=== PATIENT | female | born 1955 | race Caucasian/White ===

== ENCOUNTER 2017-12-13 13:44 | Inpatient (IN) | payer OTHER ==
[~2017-12-13] VITALS: Ht 152.4 cm; Wt 97.7 kg
[~2017-12-13 13:44] MED LIST: ATORVASTATIN CA10 MG PO; CIPRO500 MG PO; CYCLOBENZAPRINE10 MG PO; FLAGYL250 MG PO; HYOSCYAMINE0.125 MG PO; LEVOTHYROXINE50 MCG PO; NORCO 10-325 T1 EACH PO; PEPCID20 MG PO; PROZAC10 MG PO; RAMIPRIL10 MG PO; ZOFRAN ODT4 MG SL; levothyroxine PO
[2017-12-13 14:25] LABS: BASOPHILS # (AUTO) 0.1 (0.0-0.1); BASOPHILS % 0.3 % (0.0-1.0); EOSINOPHILS # (AUTO) 0.4 (0.0-0.4); EOSINOPHILS % 2.1 % (0.0-6.0); HEMATOCRIT 35.5 % (34.2-44.1); LYMPHOCYTES % 15.9 % (18.0-39.1); MEAN CORPUSCULAR HEMOGLOBIN 32.4 pg (28-32); MEAN CORPUSCULAR HGB CONC 33.8 g/dL (31-35); MEAN CORPUSCULAR VOLUME 95.9 fL (81-99); MONOCYTES # (AUTO) 1.3 (0.2-0.8); MONOCYTES % 7.1 % (4.4-11.3); NEUTROPHILS # (AUTO) 13.9 (2.1-6.9); NEUTROPHILS % 73.6 % (38.7-80.0); PLATELET COUNT 271 x10e3/uL (140-360); RED CELL DISTRIBUTION WIDTH 12.6 % (11.7-14.4)
[2017-12-13 14:39] LABS: ALANINE AMINOTRANSFERASE 10 IU/L (0-55); ALBUMIN 2.8 g/dL (3.5-5.0); ALBUMIN/GLOBULIN RATIO 0.7 (0.8-2.0); ALKALINE PHOSPHATASE 55 IU/L (40-150); ANION GAP 14.4 mmol/L (8-16); BLOOD UREA NITROGEN 10 mg/dL (7-26); BUN/CREATININE RATIO 13 (6-25); CARBON DIOXIDE 29 mmol/L (22-29); CHLORIDE 102 mmol/L (98-107); CREATININE, SERUM 0.76 mg/dL (0.57-1.11); EST GLOMERULAR FILTRATION RATE > 60 ML/MIN (60-); GLUCOSE 101 mg/dL (74-118); POTASSIUM 3.4 mmol/L (3.5-5.1); SODIUM 142 mmol/L (136-145)
[2017-12-13] MEDS ORDERED: ONDANSETRON HCL INJ 2 MG/ML VIAL IV STA ×2 (14:45→17:16)
[2017-12-13] MEDS ORDERED: SODIUM CHLORIDE 0.9% 1000ML 1,000 ML IV STA (14:45)
[2017-12-13] MEDS ORDERED: MORPHINE SULFATE INJ 4 MG/ML INJ IV ONE (14:45)
[2017-12-13 15:17] LABS: AMYLASE 22 U/L (25-125); LIPASE 14 U/L (8-78)
[2017-12-13 15:36] LABS: CLARITY,URINE SL CLOUDY (CLEAR); COLOR,URINE YELLOW (YELLOW); KETONES,URINE NEGATIVE (NEGATIVE); LEUKOCYTE ESTERASE ,URINE TRACE (NEGATIVE); NITRITE,URINE NEGATIVE (NEGATIVE); PROTEIN,URINE DIPSTICK NEGATIVE (NEGATIVE); URINE UROBILINOGEN 0.2 mg/dL (0.2 - 1)
[2017-12-13 15:37] LABS: BILIRUBIN,URINE NEGATIVE (NEGATIVE)
[2017-12-13 15:44] LABS: EPITHELIAL CELLS,URINE FEW /LPF; RBC,URINE 0-5 /HPF (0-5)
[2017-12-13] MEDS ORDERED: DIPHENHYDRAMINE HCL INJ 50 MG/ML VIAL IV STA (16:33)
[2017-12-13] MEDS ORDERED: MORPHINE SULFATE INJ 4 MG/ML INJ IV STA (17:16)
[2017-12-13] MEDS ORDERED: HYDROMORPHONE 1MG/1ML INJ IV ONE (19:14)
--- NOTE | 2017-12-13 19:30 | Diagnostic Imaging Report ---
CT Abdomen And Pelvis with Intravenous Contrast INDICATION: Lower abdominal pain TECHNIQUE: Thin collimation axial images obtained from the diaphragm to the level of the pubic symphysis following the uneventful administration of 100 cc of low osmolar, nonionic intravenous contrast. RADIATION DOSE: Total DLP: 728.8 mGy*cm Estimated effective dose: (DLP x 0.015 x size factor) mSv CTDIvol has been reviewed. It is below the limits set by the Radiation Protocol Committee (RPC). COMPARISON: None. ABDOMEN FINDINGS: Lung Bases: Minimal posterior atelectasis. Visualized portion of the mediastinum is normal. Liver: Decreased attenuation. The right lobe measures 17 cm in length. No mass.. Gallbladder: Present and appears normal. No biliary ductal dilatation. Pancreas: Normal attenuation without mass or ductal dilatation. Spleen: Normal in size. No evidence of mass.. Adrenal Glands: No evidence for mass. Kidneys: Right: Normal enhancement. No soft tissue mass. No hydronephrosis. Left: Normal enhancement. No soft tissue mass. No hydronephrosis. Lymph Nodes: No enlarged abdominal or periaortic lymph nodes. Aorta: Normal in diameter. Celiac artery and SMA are patent. PELVIS FINDINGS: Bowel: Stomach: Contains enteric contrast and is normal. Small Bowel: Contains enteric contrast. No dilatation or mural thickening. Large Bowel: Mural thickening and hyperemia with engorgement of the adjacent vasculature of the transverse colon. No associated diverticula. There are a few diverticula in the descending colon and particularly the sigmoid colon without associated inflammation. The ascending colon is not dilated. No significant stool burden in the large bowel. Appendix: Not visualized and may be absent. Bladder: Normal. The uterus is absent. No adnexal mass. There is a trace amount of ascites. No loculated fluid collection. Bones: Mild to moderate degenerative changes of the lower thoracic spine. Soft tissues: Bilateral calcified subcutaneous cutaneous granulomata in the posterior pelvis. IMPRESSION: 1. Long segment of mural thickening and adjacent inflammation of the transverse colon suggestive of colitis. No bowel obstruction. 2. Diverticulosis coli. 3. Hepatic steatosis and mild hepatomegaly. Signed by: Dr. Nas Cisneros MD on 12/13/2017 7:26 PM
[2017-12-13] MEDS ORDERED: PANTOPRAZOLE 40 MG 10ML VIAL IV ONE (21:00)
[2017-12-13] MEDS: SODIUM CHLORIDE 0.9% 1000ML 1,000 ML IV SCH (21:28)
[2017-12-13] MEDS: CEFTRIAXONE SOD 1 GM VIAL IV SCH (21:29)
[2017-12-13] MEDS: METRONIDAZOLE 500MG/NS 100ML IV SCH (21:34)
[2017-12-13 22:02] VITALS: BP 132/62
[2017-12-13 23:00] VITALS: BP 132/62
[2017-12-14] VITALS (7 sets, daily range): BP systolic 121–151; BP diastolic 60–72
[2017-12-14] MEDS: ONDANSETRON HCL INJ 2 MG/ML VIAL IV PRN ×2 (00:03→22:45)
[2017-12-14] MEDS: MORPHINE SULFATE 2 MG/ML SYR IV PRN ×2 (00:03→22:45)
[2017-12-14] MEDS ORDERED: BISACODYL 5 MG TAB EC PO ONE ×3 (00:30→01:00)
[2017-12-14] MEDS: METRONIDAZOLE 500MG/NS 100ML IV SCH ×4 (03:00→22:31)
[2017-12-14] MEDS ORDERED: CITRATE OF MAGNESIA 300ML BOTTLE PO ONE ×2 (05:00→07:00)
[2017-12-14 06:27] LABS: BASOPHILS # (AUTO) 0.1 (0.0-0.1); BASOPHILS % 0.5 % (0.0-1.0); EOSINOPHILS # (AUTO) 0.5 (0.0-0.4); HEMATOCRIT 32.9 % (34.2-44.1); HEMOGLOBIN 10.6 g/dL (12.0-16.0); LYMPHOCYTES # (AUTO) 2.5 (1.0-3.2); LYMPHOCYTES % 16.7 % (18.0-39.1); MEAN CORPUSCULAR HGB CONC 32.2 g/dL (31-35); MEAN CORPUSCULAR VOLUME 99.4 fL (81-99); MONOCYTES # (AUTO) 1.4 (0.2-0.8); MONOCYTES % 9.2 % (4.4-11.3); NEUTROPHILS # (AUTO) 10.6 (2.1-6.9); NEUTROPHILS % 69.5 % (38.7-80.0); PLATELET COUNT 243 x10e3/uL (140-360); RED BLOOD COUNT 3.31 x10e6/uL (3.6-5.1); RED CELL DISTRIBUTION WIDTH 12.7 % (11.7-14.4)
[2017-12-14 06:49] LABS: ALANINE AMINOTRANSFERASE 7 IU/L (0-55); ALBUMIN 2.4 g/dL (3.5-5.0); ALBUMIN/GLOBULIN RATIO 0.7 (0.8-2.0); ALKALINE PHOSPHATASE 51 IU/L (40-150); ANION GAP 13.3 mmol/L (8-16); BLOOD UREA NITROGEN 8 mg/dL (7-26); BUN/CREATININE RATIO 10 (6-25); CALCIUM 8.2 mg/dL (8.4-10.2); CARBON DIOXIDE 27 mmol/L (22-29); CHLORIDE 103 mmol/L (98-107); CREATININE, SERUM 0.77 mg/dL (0.57-1.11); EST GLOMERULAR FILTRATION RATE > 60 ML/MIN (60-); GLUCOSE 89 mg/dL (74-118); POTASSIUM 3.3 mmol/L (3.5-5.1); SODIUM 140 mmol/L (136-145)
[2017-12-14] MEDS: SODIUM CHLORIDE 0.9% 1000ML 1,000 ML IV SCH ×2 (08:15→16:34)
[2017-12-14] MEDS: CEFTRIAXONE SOD 1 GM VIAL IV SCH ×2 (08:15→22:31)
[2017-12-14] MEDS: PANTOPRAZOLE 40 MG 10ML VIAL IV SCH ×2 (08:15→18:36)
--- NOTE | 2017-12-14 10:18 | History and Physical ---
Ms. Luz is a [facility] 62-year-old woman who presented to the emergency room with a complaint of abdominal discomfort. HISTORY OF PRESENT ILLNESS: The patient had intermittent problems for the last 4 days. She reports that she had left total knee replacement less than 1 week ago at the [facility] but that her knee is doing well. PAST MEDICAL HISTORY: Significant for hospitalization at [facility] in December 2016 where she had abdominal discomfort and was felt to have sigmoid diverticulitis. She had some dehydration as well. She has previous diagnoses of hypertension, hyperlipidemia, and hypothyroidism. HOME MEDICATIONS: She reports taking levothyroxine, atorvastatin, and once a week Fosamax. SOCIAL HISTORY: She does not smoke or drink. PHYSICAL EXAMINATION GENERAL: At this time shows a pleasant woman who is awake, alert, and oriented. HEAD, EYES, EARS, NOSE, AND THROAT: Unremarkable. NECK: Thick. No jugular venous distention. No bruits. THORAX: Heart sounds S1 and S2 are equal. No murmurs. LUNGS: Clear. ABDOMEN: Protuberant. Healed lower midline incision. Mild diffuse tenderness. EXTREMITIES: Show the left knee bandage intact. No cyanosis, clubbing, or edema. EKG on the chart shows sinus rhythm, low voltages. Initial CBC shows hemoglobin 12.0, white count 18.8. CAT scan of the abdomen shows mural thickening in the transverse colon and hepatic steatosis. ASSESSMENT 1. Abdominal discomfort. 2. Possible colitis. 3. History of diverticulitis. 4. Recent total knee replacement. 5. Hypothyroidism. 6. History of hypertension. PLAN: Will give broad-spectrum antibiotics and IV fluids and ask for GI consultation. Further management based on clinical course. Job#: [id number] CF cc:DO NATALI ROSAS MD
--- NOTE | 2017-12-14 18:08 | Operative Report ---
DATE OF PROCEDURE: December 14, 2017 REFERRING PHYSICIANS: Dr. Drew Salamanca and Dr. Alexandr Pickett. PROCEDURE PERFORMED: Colonoscopy with biopsies. INDICATIONS FOR COLONOSCOPY: Acute diarrhea, abnormal CT scan of the abdomen. MEDICATION: Patient was done under MAC. Please see anesthesiologist's note. PROCEDURE: With patient in the left lateral decubitus position, flexible fiberoptic Olympus colonoscope was inserted into the rectum with ease and advanced all the way to the cecum. Some scattered ulcerations were noted in the ascending colon. The transverse colon was diffusely ulcerated. Multiple bulb biopsies were obtained. The mucosa overlying the descending, sigmoid and rectum revealed some mild to moderate patchy inflammatory changes and biopsies were obtained also. The scope was retroflexed into the distal rectum and small internal hemorrhoids were noted, none of which was actively bleeding. The scope was then straightened out and was subsequently withdrawn after securing an adequate stool specimen that was sent for the appropriate stool studies. Patient tolerated procedure well. IMPRESSION: 1. Ulcerative colitis primarily involving the ascending and transverse colon. 2. Diverticulosis. 3. Internal hemorrhoids, none actively bleeding. PLAN: Follow up histology. Follow up stool studies. Initiate full liquid diet. Job#: [id number] cc:DREW SALAMANCA MD cc:ALEXANDR PICKETT DO
[2017-12-14 18:14] LABS: WBC,FECAL (FECAL LACTOFERRIN) POSITIVE (NEGATIVE)
[2017-12-14] MEDS ORDERED: HYOSCYAMINE SULFATE 0.5 MG/ML AMP ONE (19:13)
[2017-12-14] MEDS ORDERED: LIDOCAINE HCL 2% LOCAL INJ 5 ML SDV VIAL INJ ONE (19:13)
[2017-12-14] MEDS ORDERED: CEFAZOLIN SOD 1 GM VIAL ONE (19:13)
[2017-12-14] MEDS ORDERED: PROPOFOL IV EMULSION 10 MG/ML 50 ML VIAL ONE (19:13)
[2017-12-15] VITALS (10 sets, daily range): BP systolic 111–157; BP diastolic 57–91
[2017-12-15] MEDS: SODIUM CHLORIDE 0.9% 1000ML 1,000 ML IV SCH ×3 (02:34→22:09)
[2017-12-15] MEDS: METRONIDAZOLE 500MG/NS 100ML IV SCH ×4 (03:18→20:22)
[2017-12-15] MEDS: CEFTRIAXONE SOD 1 GM VIAL IV SCH ×2 (08:24→20:00)
[2017-12-15] MEDS: PANTOPRAZOLE 40 MG 10ML VIAL IV SCH ×2 (08:24→16:18)
[2017-12-15 13:18] LABS: C DIFFICILE TOXIN A&B AMP PROB NEGATIVE (NEGATIVE)
[2017-12-15] MEDS ORDERED: POTASSIUM CHLORIDE 20 MEQ TAB CR PO ONE (15:00)
[2017-12-15] MEDS: MORPHINE SULFATE 2 MG/ML SYR IV PRN ×2 (16:18→21:30)
[2017-12-15] MEDS ORDERED: FENTANYL CITRATE/PF 100MCG/2 ML INJ ONE (19:11)
[2017-12-15] MEDS ORDERED: MIDAZOLAM HCL 2 MG/2 ML VIAL ONE (19:11)
[2017-12-15] MEDS: ONDANSETRON HCL INJ 2 MG/ML VIAL IV PRN (20:00)
[2017-12-16 04:03] VITALS: BP 126/59
[2017-12-16] MEDS: METRONIDAZOLE 500MG/NS 100ML IV SCH ×4 (04:33→20:40)
[2017-12-16 05:47] LABS: BASOPHILS # (AUTO) 0.1 (0.0-0.1); BASOPHILS % 1.2 % (0.0-1.0); EOSINOPHILS # (AUTO) 0.6 (0.0-0.4); EOSINOPHILS % 5.4 % (0.0-6.0); HEMATOCRIT 33.9 % (34.2-44.1); HEMOGLOBIN 11.1 g/dL (12.0-16.0); LYMPHOCYTES # (AUTO) 2.8 (1.0-3.2); LYMPHOCYTES % 26.5 % (18.0-39.1); MEAN CORPUSCULAR HEMOGLOBIN 32.5 pg (28-32); MEAN CORPUSCULAR HGB CONC 32.7 g/dL (31-35); MEAN CORPUSCULAR VOLUME 99.1 fL (81-99); MONOCYTES # (AUTO) 1.2 (0.2-0.8); MONOCYTES % 11.4 % (4.4-11.3); NEUTROPHILS # (AUTO) 5.2 (2.1-6.9); NEUTROPHILS % 49.7 % (38.7-80.0); PLATELET COUNT 285 x10e3/uL (140-360); RED BLOOD COUNT 3.42 x10e6/uL (3.6-5.1); RED CELL DISTRIBUTION WIDTH 12.8 % (11.7-14.4)
[2017-12-16 06:10] LABS: ANION GAP 11.8 mmol/L (8-16); BLOOD UREA NITROGEN < 5 mg/dL (7-26); CALCIUM 8.1 mg/dL (8.4-10.2); CARBON DIOXIDE 25 mmol/L (22-29); CHLORIDE 109 mmol/L (98-107); CREATININE, SERUM 0.73 mg/dL (0.57-1.11); EST GLOMERULAR FILTRATION RATE > 60 ML/MIN (60-); GLUCOSE 82 mg/dL (74-118); POTASSIUM 3.8 mmol/L (3.5-5.1); SODIUM 142 mmol/L (136-145)
[2017-12-16 06:12] LABS: BUN/CREATININE RATIO 7 (6-25)
[2017-12-16] MEDS ORDERED: TIZANIDINE HCL4 MG PO (06:17)
[2017-12-16] MEDS ORDERED: ASPIR 8181 MG (06:18)
[2017-12-16 07:00] VITALS: BP 130/66
[2017-12-16 07:24] VITALS: BP 130/66
[2017-12-16 07:54] LABS: ANISOCYTOSIS SLIGHT; EOSINOPHILS % (MANUAL) 5 % (0-7); LYMPHOCYTES % (MANUAL) 29 % (19-48); METAMYELOCYTES % (MANUAL) 3 % (0-0); MONOCYTES % (MANUAL) 12 % (3.4-9.0); MYELOCYTES % (MANUAL) 1 % (0-0); NEUTROPHILS % (MANUAL) 50 % (40-74); PLATELET ESTIMATE ADEQUATE; PLATELET MORPHOLOGY COMMENT NORMAL; RBC MORPHOLOGY COMMENT NORMAL
[2017-12-16] MEDS: SODIUM CHLORIDE 0.9% 1000ML 1,000 ML IV SCH ×2 (08:05→17:11)
[2017-12-16] MEDS: CEFTRIAXONE SOD 1 GM VIAL IV SCH ×2 (08:05→19:52)
[2017-12-16] MEDS: PANTOPRAZOLE 40 MG 10ML VIAL IV SCH ×2 (08:06→16:15)
[2017-12-16 11:35] VITALS: BP 135/62
[2017-12-16 15:58] VITALS: BP 147/65
[2017-12-16] MEDS: MORPHINE SULFATE 2 MG/ML SYR IV PRN ×2 (17:11→20:49)
[2017-12-16 20:00] VITALS: BP 117/53
[2017-12-17] VITALS: BP 98/53
[2017-12-17] MEDS: SODIUM CHLORIDE 0.9% 1000ML 1,000 ML IV SCH (01:56)
[2017-12-17] MEDS: METRONIDAZOLE 500MG/NS 100ML IV SCH ×2 (01:56→08:42)
[2017-12-17 04:00] VITALS: BP 126/63
[2017-12-17 05:24] LABS: BASOPHILS # (AUTO) 0.1 (0.0-0.1); BASOPHILS % 0.6 % (0.0-1.0); EOSINOPHILS # (AUTO) 0.3 (0.0-0.4); EOSINOPHILS % 3.3 % (0.0-6.0); HEMATOCRIT 32.7 % (34.2-44.1); HEMOGLOBIN 10.6 g/dL (12.0-16.0); LYMPHOCYTES # (AUTO) 2.5 (1.0-3.2); MEAN CORPUSCULAR HEMOGLOBIN 31.9 pg (28-32); MEAN CORPUSCULAR HGB CONC 32.4 g/dL (31-35); MEAN CORPUSCULAR VOLUME 98.5 fL (81-99); MONOCYTES # (AUTO) 1.3 (0.2-0.8); NEUTROPHILS % 49.8 % (38.7-80.0); PLATELET COUNT 288 x10e3/uL (140-360); RED BLOOD COUNT 3.32 x10e6/uL (3.6-5.1); RED CELL DISTRIBUTION WIDTH 12.7 % (11.7-14.4)
[2017-12-17 05:44] LABS: ANION GAP 10.9 mmol/L (8-16); BLOOD UREA NITROGEN < 5 mg/dL (7-26); CALCIUM 8.2 mg/dL (8.4-10.2); CARBON DIOXIDE 25 mmol/L (22-29); CHLORIDE 109 mmol/L (98-107); CREATININE, SERUM 0.78 mg/dL (0.57-1.11); EST GLOMERULAR FILTRATION RATE > 60 ML/MIN (60-); GLUCOSE 99 mg/dL (74-118); POTASSIUM 3.9 mmol/L (3.5-5.1); SODIUM 141 mmol/L (136-145)
[2017-12-17 05:57] LABS: BUN/CREATININE RATIO 6 (6-25)
[2017-12-17 06:15] LABS: EOSINOPHILS % (MANUAL) 5 % (0-7); LYMPHOCYTES % (MANUAL) 25 % (19-48); MONOCYTES % (MANUAL) 8 % (3.4-9.0); MYELOCYTES % (MANUAL) 1 % (0-0); NEUTROPHILS % (MANUAL) 53 % (40-74)
[2017-12-17 06:16] LABS: ANISOCYTOSIS SLIGHT; HYPOCHROMASIA SLIGHT; PLATELET ESTIMATE ADEQUATE; RBC MORPHOLOGY COMMENT NORMAL
[2017-12-17 06:17] LABS: PLATELET MORPHOLOGY COMMENT NORMAL; POIKILOCYTOSIS SLIGHT
[2017-12-17 08:00] VITALS: BP 153/70
[2017-12-17] MEDS: PANTOPRAZOLE 40 MG 10ML VIAL IV SCH (08:18)
[2017-12-17] MEDS: CEFTRIAXONE SOD 1 GM VIAL IV SCH (08:20)
[2017-12-17 09:53] VITALS: BP 153/70
[2017-12-17 12:00] VITALS: BP 148/67
--- NOTE | 2017-12-24 13:41 | Discharge Summary ---
HISTORY OF PRESENT ILLNESS: Ms. Luz is a [facility] 62-year-old who presented to the emergency room on the with the complaint of abdominal discomfort. HOSPITAL COURSE: CAT scan suggested possible colitis. She had had a recent left total knee replacement at [facility] the week before. She was seen in consultation by Dr. Titus Samson, who did colonoscopy for her, suggesting ulcerative colitis in the ascending and transverse colon with some diverticulosis. She was managed medically. By the , the patient was eager to be discharged to home and she was discharged with medical management and she will follow up with Dr. Titus Samson as an outpatient. DISCHARGE DIAGNOSES: 1. Abdominal pain. 2. Colitis. 3. Recent total knee replacement. 4. Hypothyroidism. 5. Hypertension. She will resume her home medications as well. DREW SALAMANCA MD Job#: [id number] [employer]
== END 2017-12-17 12:55 | disposition home or self-care (01) | DRG 386 ==
LOC: ER 13:44 → ERHOLD 20:45 → MED/SURG3 21:47
PROVIDERS: ADMIT Internal Medicine Cardiovascular Disease; ATTEND Internal Medicine Cardiovascular Disease
PROC: 0DBN8ZX Excision of Sigmoid Colon, Via Natural or Artificial Opening Endoscopic, Diagnostic (ICD-10-PCS; 2017-12-14)
PROC: 0DBP8ZX Excision of Rectum, Via Natural or Artificial Opening Endoscopic, Diagnostic (ICD-10-PCS; 2017-12-14)
PROC: 0DBM8ZX Excision of Descending Colon, Via Natural or Artificial Opening Endoscopic, Diagnostic (ICD-10-PCS; 2017-12-14)
PROC: 0DBK8ZX Excision of Ascending Colon, Via Natural or Artificial Opening Endoscopic, Diagnostic (ICD-10-PCS; principal; 2017-12-14 17:30)
DX: K51.918 Ulcerative colitis, unspecified with other complication (principal); K57.32 Diverticulitis of large intestine without perforation or abscess without bleeding; E03.9 Hypothyroidism, unspecified; I10 Essential (primary) hypertension; Z96.652 Presence of left artificial knee joint; E86.0 Dehydration; Z79.51 Long term (current) use of inhaled steroids; K76.0 Fatty (change of) liver, not elsewhere classified; E78.5 Hyperlipidemia, unspecified
CPT/HCPCS: 36415; 45380; 74177; 80048; 80053; 81001; 82150; 83605; 83630; 83690; 83993; 85025; 87040; 87045; 87177; 87328; 87493; 88305; 93005; 99284; J0690; J0696; J1170; J1200; J1980; J2001; J2250; J2270; J2405; J7030

== ENCOUNTER 2022-09-02 18:09 | Emergency (ER) | payer OTHER, MEDICARE ==
[~2022-09-02] VITALS: Ht 152.4 cm; Wt 97.5 kg
[~2022-09-02 18:09] MED LIST changes: +ASPIR 8181 MG; +TIZANIDINE HCL4 MG PO
[2022-09-02 19:30] VITALS: O2SAT 98
== END 2022-09-02 21:35 | disposition home or self-care (01) ==
LOC: ER 18:40
DX: S76.012A Strain of muscle, fascia and tendon of left hip, initial encounter (principal); S39.011A Strain of muscle, fascia and tendon of abdomen, initial encounter; Y93.E9 Activity, other interior property and clothing maintenance; Y92.89 Other specified places as the place of occurrence of the external cause; I10 Essential (primary) hypertension; E78.5 Hyperlipidemia, unspecified; E03.9 Hypothyroidism, unspecified; Z87.19 Personal history of other diseases of the digestive system
CPT/HCPCS: 99282

== ENCOUNTER 2022-09-20 09:53 | Inpatient (IN) | payer OTHER, MEDICARE ==
[~2022-09-20] VITALS: Ht 152.4 cm; Wt 97.5 kg
[2022-09-20] MEDS ORDERED: SODIUM CHLORIDE 0.9% 1000ML 1,000 ML IV STA (10:14)
[2022-09-20] MEDS ORDERED: ONDANSETRON HCL INJ 2MG/ML 2ML 2 MG/ML VIAL IV STA (10:14)
[2022-09-20 10:26] LABS: BASOPHILS % 0.2 % (0.0-1.0); EOSINOPHILS % 0.2 % (0.0-6.0); HEMATOCRIT 41.6 % (34.2-44.1); HEMOGLOBIN 14.1 g/dL (12.0-16.0); LYMPHOCYTES # (AUTO) 2.1 (1.0-3.2); LYMPHOCYTES % 13.4 % (18.0-39.1); MEAN CORPUSCULAR HEMOGLOBIN 32.1 pg (28-32); MEAN CORPUSCULAR HGB CONC 33.9 g/dL (31-35); MEAN CORPUSCULAR VOLUME 94.8 fL (81-99); MONOCYTES # (AUTO) 1.6 (0.2-0.8); MONOCYTES % 10.5 % (4.4-11.3); NEUTROPHILS # (AUTO) 11.4 (2.1-6.9); PLATELET COUNT 344 x10e3/uL (140-360); RED BLOOD COUNT 4.39 x10e6/uL (3.6-5.1); RED CELL DISTRIBUTION WIDTH 12.5 % (11.7-14.4)
[2022-09-20 10:37] LABS: INR 0.97; PARTIAL THROMBOPLASTIN TIME 24.1 seconds (23.8-35.5); PROTHROMBIN TIME 13.4 seconds (11.9-14.5)
[2022-09-20 10:45] LABS: ALANINE AMINOTRANSFERASE 24 IU/L (0-55); ALBUMIN 3.4 g/dL (3.5-5.0); ALBUMIN/GLOBULIN RATIO 0.9 (0.8-2.0); ALKALINE PHOSPHATASE 91 IU/L (40-150); ANION GAP 20.2 mmol/L (8-16); BLOOD UREA NITROGEN 15 mg/dL (7-26); BUN/CREATININE RATIO 12 (6-25); CALCIUM 9.4 mg/dL (8.4-10.2); CARBON DIOXIDE 28 mmol/L (22-29); CHLORIDE 96 mmol/L (98-107); CREATININE, SERUM 1.23 mg/dL (0.57-1.11); GLUCOSE 136 mg/dL (74-118); LIPASE 16 U/L (8-78); MAGNESIUM 1.6 MG/DL (1.3-2.1); POTASSIUM 3.2 mmol/L (3.5-5.1); SODIUM 141 mmol/L (136-145)
[2022-09-20] MEDS: METRONIDAZOLE 500MG/NS 100ML 100 ML IV SCH ×3 (13:10→23:37)
[2022-09-20] MEDS ORDERED: POTASSIUM CHLORIDE 20 MEQ TAB CR PO STA (14:00)
[2022-09-20] MEDS: SODIUM CHLORIDE 0.9% 1000ML 1,000 ML IV SCH (14:28)
[2022-09-20] MEDS ORDERED: PEPCID20 MG PO (15:28)
[2022-09-20] MEDS ORDERED: PROZAC20 MG PO (15:28)
[2022-09-20 15:31] VITALS: BP 163/72
[2022-09-20] MEDS: ONDANSETRON HCL INJ 2MG/ML 2ML 2 MG/ML VIAL IV PRN (15:45)
[2022-09-20] MEDS: Morphine 2mg Syringe 2 MG/ML SYR IV PRN ×2 (15:45→19:53)
[2022-09-20 15:54] VITALS: BP 163/72
[2022-09-20 16:11] VITALS: BP 163/72
[2022-09-20 19:25] VITALS: BP 144/67
[2022-09-20 19:41] LABS: CLARITY,URINE CLEAR (CLEAR); COLOR,URINE YELLOW (YELLOW); KETONES,URINE NEGATIVE (NEGATIVE); LEUKOCYTE ESTERASE ,URINE TRACE (NEGATIVE); NITRITE,URINE NEGATIVE (NEGATIVE); URINE UROBILINOGEN 0.2 mg/dL (0.2 - 1)
[2022-09-20 19:42] LABS: PROTEIN,URINE DIPSTICK 1+ (NEGATIVE)
[2022-09-20 20:00] VITALS: BP 144/67
[2022-09-20 20:05] LABS: EPITHELIAL CELLS,URINE RARE /LPF; RBC,URINE 0-5 /HPF (0-5)
[2022-09-21] VITALS (7 sets, daily range): BP systolic 138–157; BP diastolic 69–81
[2022-09-21] MEDS: SODIUM CHLORIDE 0.9% 1000ML 1,000 ML IV SCH ×3 (03:24→21:16)
[2022-09-21] MEDS: METRONIDAZOLE 500MG/NS 100ML 100 ML IV SCH ×3 (05:48→18:03)
[2022-09-21] MEDS: ONDANSETRON HCL INJ 2MG/ML 2ML 2 MG/ML VIAL IV PRN ×4 (05:48→18:47)
[2022-09-21 06:07] LABS: BASOPHILS % 0.3 % (0.0-1.0); EOSINOPHILS # (AUTO) 0.1 (0.0-0.4); EOSINOPHILS % 0.6 % (0.0-6.0); HEMATOCRIT 39.1 % (34.2-44.1); HEMOGLOBIN 12.7 g/dL (12.0-16.0); LYMPHOCYTES # (AUTO) 2.7 (1.0-3.2); LYMPHOCYTES % 17.1 % (18.0-39.1); MEAN CORPUSCULAR HEMOGLOBIN 32.2 pg (28-32); MEAN CORPUSCULAR HGB CONC 32.5 g/dL (31-35); MEAN CORPUSCULAR VOLUME 99.2 fL (81-99); MONOCYTES # (AUTO) 1.6 (0.2-0.8); MONOCYTES % 10.4 % (4.4-11.3); NEUTROPHILS # (AUTO) 11.1 (2.1-6.9); NEUTROPHILS % 70.7 % (38.7-80.0); PLATELET COUNT 288 x10e3/uL (140-360); RED BLOOD COUNT 3.94 x10e6/uL (3.6-5.1); RED CELL DISTRIBUTION WIDTH 12.5 % (11.7-14.4)
[2022-09-21 07:21] LABS: ALBUMIN 3.1 g/dL (3.5-5.0); ALBUMIN/GLOBULIN RATIO 0.9 (0.8-2.0); ANION GAP 15.8 mmol/L (8-16); CALCIUM 8.3 mg/dL (8.4-10.2); CREATININE, SERUM 0.9 mg/dL (0.57-1.11); POTASSIUM 3.8 mmol/L (3.5-5.1)
[2022-09-21] MEDS ORDERED: ACETAMINOPHEN 325 MG TAB PO PRN (10:00)
[2022-09-21] MEDS ORDERED: HYDRALAZINE HCL 20 MG/ML VIAL IV PRN (10:00)
[2022-09-21] MEDS ORDERED: CYCLOBENZAPRINE HCL 10 MG TAB PO PRN (11:15)
[2022-09-21] MEDS: FLUOXETINE HCL 20 MG CAP PO SCH (11:45)
[2022-09-21] MEDS: RAMIPRIL 5 MG CAP PO SCH (14:29)
[2022-09-21] MEDS: Morphine 2mg Syringe 2 MG/ML SYR IV PRN (18:47)
[2022-09-21] MEDS: ATORVASTATIN 10 MG TAB PO SCH (21:16)
[2022-09-22] VITALS (7 sets, daily range): BP systolic 131–154; BP diastolic 64–88
[2022-09-22] MEDS: METRONIDAZOLE 500MG/NS 100ML 100 ML IV SCH ×5 (01:03→23:38)
[2022-09-22] MEDS: LEVOTHYROXINE SODIUM 50 MCG TAB PO SCH (06:02)
[2022-09-22] MEDS: SODIUM CHLORIDE 0.9% 1000ML 1,000 ML IV SCH ×2 (06:11→15:51)
[2022-09-22 06:43] LABS: BASOPHILS % 0.3 % (0.0-1.0); EOSINOPHILS # (AUTO) 0.1 (0.0-0.4); EOSINOPHILS % 1.6 % (0.0-6.0); HEMATOCRIT 35.2 % (34.2-44.1); HEMOGLOBIN 11.6 g/dL (12.0-16.0); LYMPHOCYTES # (AUTO) 1.7 (1.0-3.2); LYMPHOCYTES % 18.8 % (18.0-39.1); MEAN CORPUSCULAR HEMOGLOBIN 31.9 pg (28-32); MEAN CORPUSCULAR VOLUME 96.7 fL (81-99); MONOCYTES # (AUTO) 1.1 (0.2-0.8); MONOCYTES % 12.5 % (4.4-11.3); NEUTROPHILS # (AUTO) 5.9 (2.1-6.9); PLATELET COUNT 229 x10e3/uL (140-360); RED BLOOD COUNT 3.64 x10e6/uL (3.6-5.1); RED CELL DISTRIBUTION WIDTH 12.5 % (11.7-14.4)
[2022-09-22 07:15] LABS: ALBUMIN 2.9 g/dL (3.5-5.0); ALBUMIN/GLOBULIN RATIO 0.9 (0.8-2.0); ANION GAP 14.5 mmol/L (8-16); CALCIUM 8.4 mg/dL (8.4-10.2); CREATININE, SERUM 0.89 mg/dL (0.57-1.11); MAGNESIUM 1.5 MG/DL (1.3-2.1); POTASSIUM 3.5 mmol/L (3.5-5.1)
[2022-09-22 07:37] LABS: PHOSPHORUS 2.7 MG/DL (2.3-4.7)
[2022-09-22 07:58] LABS: THYROID STIMULATING HORMONE 1.364 uIU/mL (0.350-4.940)
[2022-09-22] MEDS: RAMIPRIL 5 MG CAP PO SCH (09:13)
[2022-09-22] MEDS: FLUOXETINE HCL 20 MG CAP PO SCH (09:13)
[2022-09-22] MEDS ORDERED: MAGNESIUM SULFATE 2GM/50ML 50 ML IV ONE (09:30)
[2022-09-22] MEDS: ONDANSETRON HCL INJ 2MG/ML 2ML 2 MG/ML VIAL IV PRN ×2 (10:01→14:12)
[2022-09-22] MEDS ORDERED: POTASSIUM CHLORIDE 20 MEQ TAB CR PO ONE (11:00)
[2022-09-22] MEDS ORDERED: MAGNESIUM SULF 1GRAM/DEXTROSE 100 ML IV ONE (12:00)
[2022-09-22] MEDS: ATORVASTATIN 10 MG TAB PO SCH (21:45)
[2022-09-23] VITALS (8 sets, daily range): BP systolic 104–154; BP diastolic 60–81
[2022-09-23] MEDS: SODIUM CHLORIDE 0.9% 1000ML 1,000 ML IV SCH ×3 (02:48→21:03)
[2022-09-23] MEDS: METRONIDAZOLE 500MG/NS 100ML 100 ML IV SCH ×3 (05:45→17:03)
[2022-09-23] MEDS: LEVOTHYROXINE SODIUM 50 MCG TAB PO SCH (05:45)
[2022-09-23 06:21] LABS: ANION GAP 12.4 mmol/L (8-16); CALCIUM 7.8 mg/dL (8.4-10.2); CREATININE, SERUM 0.82 mg/dL (0.57-1.11); POTASSIUM 3.4 mmol/L (3.5-5.1)
[2022-09-23] MEDS: RAMIPRIL 5 MG CAP PO SCH (09:00)
[2022-09-23] MEDS: FLUOXETINE HCL 20 MG CAP PO SCH (09:00)
[2022-09-23] MEDS ORDERED: POTASSIUM CHLORIDE 20 MEQ TAB CR PO ONE (09:00)
[2022-09-23] MEDS: ONDANSETRON HCL INJ 2MG/ML 2ML 2 MG/ML VIAL IV PRN ×2 (09:44→17:03)
[2022-09-23] MEDS: ATORVASTATIN 10 MG TAB PO SCH (21:02)
[2022-09-24 00:38] VITALS: BP 121/68
[2022-09-24] MEDS: METRONIDAZOLE 500MG/NS 100ML 100 ML IV SCH ×3 (00:39→13:10)
[2022-09-24 05:02] VITALS: BP 134/63
[2022-09-24] MEDS: LEVOTHYROXINE SODIUM 50 MCG TAB PO SCH (05:18)
[2022-09-24 06:07] LABS: BASOPHILS % 0.4 % (0.0-1.0); EOSINOPHILS # (AUTO) 0.2 (0.0-0.4); EOSINOPHILS % 2.7 % (0.0-6.0); HEMATOCRIT 32.6 % (34.2-44.1); HEMOGLOBIN 10.7 g/dL (12.0-16.0); LYMPHOCYTES # (AUTO) 1.5 (1.0-3.2); LYMPHOCYTES % 22.3 % (18.0-39.1); MEAN CORPUSCULAR HEMOGLOBIN 32.1 pg (28-32); MEAN CORPUSCULAR HGB CONC 32.8 g/dL (31-35); MEAN CORPUSCULAR VOLUME 97.9 fL (81-99); MONOCYTES % 14.2 % (4.4-11.3); NEUTROPHILS # (AUTO) 4.1 (2.1-6.9); NEUTROPHILS % 59.1 % (38.7-80.0); PLATELET COUNT 206 x10e3/uL (140-360); RED BLOOD COUNT 3.33 x10e6/uL (3.6-5.1); RED CELL DISTRIBUTION WIDTH 12.7 % (11.7-14.4)
[2022-09-24 06:36] LABS: ANION GAP 11.5 mmol/L (8-16); CREATININE, SERUM 0.83 mg/dL (0.57-1.11); MAGNESIUM 1.6 MG/DL (1.3-2.1); PHOSPHORUS 2.4 MG/DL (2.3-4.7); POTASSIUM 3.5 mmol/L (3.5-5.1)
[2022-09-24] MEDS: RAMIPRIL 5 MG CAP PO SCH (09:00)
[2022-09-24] MEDS: FLUOXETINE HCL 20 MG CAP PO SCH (09:00)
[2022-09-24 09:05] VITALS: BP 125/74
[2022-09-24] MEDS: SODIUM CHLORIDE 0.9% 1000ML 1,000 ML IV SCH (10:51)
[2022-09-24] MEDS ORDERED: MAGNESIUM SULFATE 2GM/50ML 50 ML IV ONE (11:00)
[2022-09-24 13:15] VITALS: BP 107/58
[2022-09-24 16:27] VITALS: BP 109/56
[2022-09-24] MEDS ORDERED: ONDANSETRON HCL 4 MG ORAL DISINTEGRATING TAB PO PRN (18:00)
[2022-09-25] MEDS ORDERED: PANTOPRAZOLE SOD 40 MG TABEC PO SCH (07:30)
== END 2022-09-24 18:43 | disposition home or self-care (01) | DRG 690 ==
LOC: ER 09:59 → ERHOLD 14:04 → INTOOBSV 14:04 → MED/SURG2 15:07 → OBSVTOIN 09-22 08:52
PROVIDERS: ADMIT Internal Medicine; ATTEND Internal Medicine
PROC: 02HV33Z Insertion of Infusion Device into Superior Vena Cava, Percutaneous Approach (ICD-10-PCS; principal; 2022-09-22)
DX: N30.91 Cystitis, unspecified with hematuria (principal)
CPT/HCPCS: 36415; 36569; 71045; 74176; 80048; 80053; 80061; 81001; 83036; 83690; 83735; 84100; 84443; 84484; 85025; 85610; 85730; 87086; 93005; 94799; 99284; G0378; J0696; J2270; J2405; J3475; J7030

== ENCOUNTER 2023-04-20 08:45 | Inpatient (IN) | payer OTHER, MEDICARE ==
[2023-04-20] VITALS (8 sets, daily range): BP systolic 104–139; BP diastolic 55–81; PULSE 65–84; RESP 18–20; TEMP 98–98.7; O2SAT 98–100
[~2023-04-20] VITALS: Ht 152.4 cm; Wt 89.4 kg
[~2023-04-20 08:45] MED LIST changes: +CIPRO500 MG/5 M PO; +PROZAC20 MG PO
[2023-04-20] MEDS ORDERED: ONDANSETRON HCL INJ 2MG/ML 2ML 2 MG/ML VIAL IV STA (09:09)
[2023-04-20] MEDS ORDERED: LACTATED RINGER'S 1,000 ML INJ ONE (09:15)
[2023-04-20 09:22] LABS: BASOPHILS # (AUTO) 0.1 (0.0-0.1); BASOPHILS % 0.5 % (0.0-1.0); EOSINOPHILS # (AUTO) 0.3 (0.0-0.4); EOSINOPHILS % 2.1 % (0.0-6.0); HEMATOCRIT 37.2 % (34.2-44.1); HEMOGLOBIN 12.5 g/dL (12.0-16.0); LYMPHOCYTES # (AUTO) 3.1 (1.0-3.2); LYMPHOCYTES % 25.6 % (18.0-39.1); MEAN CORPUSCULAR HEMOGLOBIN 31.2 pg (28-32); MEAN CORPUSCULAR HGB CONC 33.6 g/dL (31-35); MEAN CORPUSCULAR VOLUME 92.8 fL (81-99); MONOCYTES # (AUTO) 1.5 (0.2-0.8); MONOCYTES % 12.8 % (4.4-11.3); NEUTROPHILS % 58.3 % (38.7-80.0); PLATELET COUNT 250 x10e3/uL (140-360); RED BLOOD COUNT 4.01 x10e6/uL (3.6-5.1); RED CELL DISTRIBUTION WIDTH 13.2 % (11.7-14.4); WHITE BLOOD COUNT 11.98 x10e3/uL (4.8-10.8)
[2023-04-20 09:38] LABS: ALBUMIN 3.5 g/dL (3.5-5.0); ALBUMIN/GLOBULIN RATIO 0.9 (0.8-2.0); ANION GAP 19.2 mmol/L (8-16); CALCIUM 9.4 mg/dL (8.4-10.2); CREATININE, SERUM 2.72 mg/dL (0.57-1.11); MAGNESIUM 1.8 MG/DL (1.3-2.1); POTASSIUM 3.2 mmol/L (3.5-5.1)
[2023-04-20 09:39] LABS: INR 1.01; PROTHROMBIN TIME 13.5 seconds (11.9-14.5)
[2023-04-20 09:40] LABS: PARTIAL THROMBOPLASTIN TIME 24.5 seconds (23.8-35.5)
[2023-04-20] MEDS ORDERED: LACTATED RINGER'S 1,000 ML INJ SCH (10:00)
[2023-04-20 10:19] LABS: CLARITY,URINE SL CLOUDY (CLEAR); COLOR,URINE YELLOW (YELLOW); LEUKOCYTE ESTERASE ,URINE NEGATIVE (NEGATIVE); NITRITE,URINE NEGATIVE (NEGATIVE); PROTEIN,URINE DIPSTICK TRACE (NEGATIVE)
[2023-04-20 10:20] LABS: KETONES,URINE 1+ (NEGATIVE); URINE UROBILINOGEN 0.2 mg/dL (0.2 - 1)
[2023-04-20 10:42] LABS: BACTERIA,URINE FEW /HPF; EPITHELIAL CELLS,URINE MODERATE /LPF; RBC,URINE 0-5 /HPF (0-5); WBC,URINE (MAN) 0-5 /HPF (0-5)
[2023-04-20] MEDS ORDERED: POTASSIUM CHLORIDE 10MEQ/100ML 300 ML ONE (10:53)
[2023-04-20] MEDS: POTASSIUM CHLORIDE 10MEQ/100ML 100 ML IV SCH ×3 (10:54→14:37)
[2023-04-20] MEDS ORDERED: KCL 20MEQ/.9 SOD CHL 1,000 ML IV ONE ×2 (11:00→15:00)
[2023-04-20] MEDS ORDERED: ONDANSETRON HCL INJ 2MG/ML 2ML 2 MG/ML VIAL IV PRN (11:15)
[2023-04-20] MEDS ORDERED: PROMETHAZINE 12.5MG/ NACL 0.9% 12.5 MG/50 ML BAG IV PRN (14:45)
[2023-04-20] MEDS ORDERED: HYDRALAZINE HCL 20 MG/ML VIAL IV PRN (14:45)
[2023-04-20] MEDS ORDERED: PANTOPRAZOLE SO40 MG PO (16:05)
[2023-04-20] MEDS ORDERED: SODIUM CHLORIDE 0.9% 1000ML 1,000 ML IV SCH (17:00)
[2023-04-20] MEDS: SODIUM CHLORIDE 0.9% 1000ML 1,000 ML IV SCH (19:34)
[2023-04-21] VITALS (9 sets, daily range): BP systolic 113–142; BP diastolic 64–81; PULSE 71–98; RESP 18–20; TEMP 98.2–98.8; O2SAT 93–100
[2023-04-21] MEDS: METOCLOPRAMIDE HCL 10 MG/2ML VIAL IV SCH ×5 (00:07→23:01)
[2023-04-21] MEDS: SODIUM CHLORIDE 0.9% 1000ML 1,000 ML IV SCH ×5 (00:12→23:00)
[2023-04-21 05:40] LABS: BASOPHILS # (AUTO) 0.1 (0.0-0.1); BASOPHILS % 0.6 % (0.0-1.0); EOSINOPHILS # (AUTO) 0.3 (0.0-0.4); EOSINOPHILS % 3.2 % (0.0-6.0); HEMATOCRIT 35.2 % (34.2-44.1); HEMOGLOBIN 11.5 g/dL (12.0-16.0); LYMPHOCYTES # (AUTO) 2.6 (1.0-3.2); LYMPHOCYTES % 29.3 % (18.0-39.1); MEAN CORPUSCULAR HEMOGLOBIN 30.9 pg (28-32); MEAN CORPUSCULAR HGB CONC 32.7 g/dL (31-35); MEAN CORPUSCULAR VOLUME 94.6 fL (81-99); MONOCYTES # (AUTO) 1.1 (0.2-0.8); NEUTROPHILS # (AUTO) 4.8 (2.1-6.9); NEUTROPHILS % 54.4 % (38.7-80.0); PLATELET COUNT 239 x10e3/uL (140-360); RED BLOOD COUNT 3.72 x10e6/uL (3.6-5.1); RED CELL DISTRIBUTION WIDTH 13.3 % (11.7-14.4); WHITE BLOOD COUNT 8.83 x10e3/uL (4.8-10.8)
[2023-04-21 06:05] LABS: ALBUMIN/GLOBULIN RATIO 0.9 (0.8-2.0); ANION GAP 16.6 mmol/L (8-16); CALCIUM 8.5 mg/dL (8.4-10.2); CREATININE, SERUM 2.37 mg/dL (0.57-1.11); POTASSIUM 3.6 mmol/L (3.5-5.1)
[2023-04-21 06:49] LABS: CREATINE KINASE 90 IU/L (29-168)
[2023-04-21] MEDS ORDERED: CYCLOBENZAPRINE HCL 10 MG TAB PO PRN (10:00)
[2023-04-21] MEDS ORDERED: FENTANYL CITRATE/PF 100MCG/2 ML INJ ONE (13:09)
[2023-04-21] MEDS ORDERED: BENZOCAINE/TETRACAINE/BUTAMBEN AERO SPRAY 56 GM CAN ONE (16:50)
[2023-04-22] VITALS (9 sets, daily range): BP systolic 115–145; BP diastolic 64–96; PULSE 85–98; RESP 16–20; TEMP 97.6–99.2; O2SAT 95–99
[2023-04-22] MEDS: SODIUM CHLORIDE 0.9% 1000ML 1,000 ML IV SCH ×3 (04:06→17:24)
[2023-04-22] MEDS: LEVOTHYROXINE SODIUM 50 MCG TAB PO SCH (05:26)
[2023-04-22] MEDS: METOCLOPRAMIDE HCL 10 MG/2ML VIAL IV SCH ×4 (05:26→23:20)
[2023-04-22 07:39] LABS: BASOPHILS # (AUTO) 0.1 (0.0-0.1); BASOPHILS % 0.3 % (0.0-1.0); EOSINOPHILS # (AUTO) 0.3 (0.0-0.4); HEMATOCRIT 36.2 % (34.2-44.1); LYMPHOCYTES # (AUTO) 3.7 (1.0-3.2); LYMPHOCYTES % 23.2 % (18.0-39.1); MEAN CORPUSCULAR HGB CONC 33.1 g/dL (31-35); MEAN CORPUSCULAR VOLUME 93.5 fL (81-99); MONOCYTES # (AUTO) 1.6 (0.2-0.8); MONOCYTES % 9.8 % (4.4-11.3); NEUTROPHILS # (AUTO) 10.3 (2.1-6.9); NEUTROPHILS % 64.3 % (38.7-80.0); PLATELET COUNT 261 x10e3/uL (140-360); RED BLOOD COUNT 3.87 x10e6/uL (3.6-5.1); RED CELL DISTRIBUTION WIDTH 13.2 % (11.7-14.4)
[2023-04-22 08:03] LABS: ANION GAP 14.5 mmol/L (8-16); CALCIUM 8.4 mg/dL (8.4-10.2); CREATININE, SERUM 1.52 mg/dL (0.57-1.11); POTASSIUM 3.5 mmol/L (3.5-5.1)
[2023-04-22] MEDS: ATORVASTATIN 10 MG TAB PO SCH (09:27)
[2023-04-22] MEDS: FLUOXETINE HCL 20 MG CAP PO SCH (09:27)
[2023-04-23] VITALS: BP 146/71; PULSE 91; RESP 18; TEMP 98.5; O2SAT 99
[2023-04-23] MEDS: SODIUM CHLORIDE 0.9% 1000ML 1,000 ML IV SCH (02:18)
[2023-04-23 04:00] VITALS: BP 146/66; PULSE 94; RESP 18; TEMP 98.9; O2SAT 97
[2023-04-23 05:27] LABS: BASOPHILS # (AUTO) 0.1 (0.0-0.1); BASOPHILS % 0.6 % (0.0-1.0); EOSINOPHILS # (AUTO) 0.5 (0.0-0.4); EOSINOPHILS % 4.5 % (0.0-6.0); HEMATOCRIT 33.5 % (34.2-44.1); HEMOGLOBIN 10.9 g/dL (12.0-16.0); LYMPHOCYTES # (AUTO) 2.5 (1.0-3.2); LYMPHOCYTES % 24.4 % (18.0-39.1); MEAN CORPUSCULAR HEMOGLOBIN 31.2 pg (28-32); MEAN CORPUSCULAR HGB CONC 32.5 g/dL (31-35); MONOCYTES # (AUTO) 1.4 (0.2-0.8); MONOCYTES % 13.7 % (4.4-11.3); NEUTROPHILS # (AUTO) 5.7 (2.1-6.9); NEUTROPHILS % 56.4 % (38.7-80.0); PLATELET COUNT 214 x10e3/uL (140-360); RED BLOOD COUNT 3.49 x10e6/uL (3.6-5.1); RED CELL DISTRIBUTION WIDTH 13.3 % (11.7-14.4); WHITE BLOOD COUNT 10.07 x10e3/uL (4.8-10.8)
[2023-04-23] MEDS: LEVOTHYROXINE SODIUM 50 MCG TAB PO SCH (05:28)
[2023-04-23] MEDS: METOCLOPRAMIDE HCL 10 MG/2ML VIAL IV SCH ×2 (05:28→12:00)
[2023-04-23 05:51] LABS: ANION GAP 13.2 mmol/L (8-16); BLOOD UREA NITROGEN < 5 mg/dL (7-26); CALCIUM 8.1 mg/dL (8.4-10.2); CARBON DIOXIDE 24 mmol/L (22-29); CHLORIDE 110 mmol/L (98-107); CREATININE, SERUM 1.16 mg/dL (0.57-1.11); POTASSIUM 3.2 mmol/L (3.5-5.1); SODIUM 144 mmol/L (136-145)
[2023-04-23 06:08] LABS: BUN/CREATININE RATIO 4 (6-25)
[2023-04-23 06:58] VITALS: PULSE 93; RESP 18; O2SAT 96
[2023-04-23 08:00] VITALS: BP 147/73; PULSE 91; RESP 20; TEMP 98.2; O2SAT 100
[2023-04-23 08:57] VITALS: BP 147/73; PULSE 91; RESP 20; TEMP 98.2; O2SAT 100
[2023-04-23] MEDS: ATORVASTATIN 10 MG TAB PO SCH (08:58)
[2023-04-23] MEDS: FLUOXETINE HCL 20 MG CAP PO SCH (08:58)
[2023-04-23] MEDS ORDERED: POTASSIUM CHLORIDE 20 MEQ TAB CR PO ONE (11:00)
[2023-04-23 11:36] VITALS: BP 146/86; PULSE 99; RESP 16; TEMP 98; O2SAT 98
== END 2023-04-23 15:01 | disposition home or self-care (01) | DRG 684 ==
LOC: ER 08:54 → ERHOLD 11:11 → MED/SURG 13:03
PROVIDERS: ADMIT Internal Medicine; ATTEND Internal Medicine
PROC: 0DB78ZX Excision of Stomach, Pylorus, Via Natural or Artificial Opening Endoscopic, Diagnostic (ICD-10-PCS; principal; 2023-04-21 16:48)
DX: N17.9 Acute kidney failure, unspecified (principal); E86.0 Dehydration; K20.90 Esophagitis, unspecified without bleeding; Z11.52 Encounter for screening for COVID-19; K44.9 Diaphragmatic hernia without obstruction or gangrene; I10 Essential (primary) hypertension; E03.9 Hypothyroidism, unspecified; E78.5 Hyperlipidemia, unspecified; I95.9 Hypotension, unspecified; E86.1 Hypovolemia; E87.6 Hypokalemia; E66.01 Morbid (severe) obesity due to excess calories; Z68.38 Body mass index [BMI] 38.0-38.9, adult; K57.90 Diverticulosis of intestine, part unspecified, without perforation or abscess without bleeding; Z96.653 Presence of artificial knee joint, bilateral; I45.81 Long QT syndrome; R74.01 Elevation of levels of liver transaminase levels; K29.70 Gastritis, unspecified, without bleeding; R73.9 Hyperglycemia, unspecified; Z86.718 Personal history of other venous thrombosis and embolism; Z88.0 Allergy status to penicillin; Z86.711 Personal history of pulmonary embolism
CPT/HCPCS: 36415; 43239; 71045; 76770; 80048; 80053; 81001; 82550; 83605; 83735; 83880; 84100; 84484; 85025; 85610; 85730; 87040; 87071; 87086; 87205; 88305; 88342; 93005; 94799; 99284; J2405; J2765; J3480; J7030; U0002